=== PATIENT | male | born 1995 | race Caucasian/White ===

== ENCOUNTER 2017-03-22 16:25 | Emergency (ER) | payer OTHER ==
[2017-03-22] MEDS ORDERED: Fluorescein 1 MG Ophth Strip EYELF ONE (16:34)
[2017-03-22] MEDS ORDERED: Tetracaine HCl/PF 0.5% 4 ML Bottle EYELF ONE (16:34)
--- NOTE | 2017-03-22 16:37 | EDM.PDOC ---
[id number] Data Allergies Allergy/AdvReac Type Severity Reaction Status Date / Time NSAIDS (Non-Steroidal Allergy Hives Verified 03/22/17 17:54 Anti-Inflamma Home Meds: Home Meds . [No Known Home Meds] 03/22/17 [History] Past Medical History - Past Health History Medical/Surgical History: Denies Medical/Surgical History Psychiatric History: Reports: Addiction - Past Surgical History HEENT Surgical History: Reports: Other (See Below) Other HEENT Surgeries/Procedures: dental surgery Social & Family History - Family History Family Medical History: Noncontributory - Tobacco Use Smoking Status *Q: Current Every Day Smoker Years of Tobacco use: 5 Packs/Tins Daily: 1 Used Tobacco, but Quit: No Second Hand Smoke Exposure: Yes - Caffeine Use Caffeine Use: Reports: Coffee, Energy Drinks, Soda - Alcohol Use Days Per Week of Alcohol Use: 0 - Recreational Drug Use Recreational Drug Use: No Drug Use in Last 12 Months: No Recreational Drug Type: Reports: Methamphetamine, Opium - Living Situation & Occupation Living situation: Reports: with Family Occupation: Employed ED ROS GENERAL - Review of Systems Review Of Systems: ROS reveals no pertinent complaints other than HPI. ED EXAM GENERAL W FULL EYE - Physical Exam Exam: See Below Exam Limited By: No Limitations General Appearance: Alert, WD/WN, No Apparent Distress Eye Exam: Bilateral Eye: Conjunctival Injection, EOMI, PERRL Eyelids: Bilateral: Lid Everted for Exam Conjunctiva & Sclera: Bilateral: Injected Cornea Exam: Bilateral: Normal Appearance, Examined with Flourescein Extraocular Movements: Bilateral: Intact Pupils: Normal Accommodation Pupillary Size: Bilateral: 3 mm Pupillary Reaction: Bilateral: Brisk Anterior Chamber: Bilateral: Normal Appearance Ears: Normal External Exam, Normal Canal, Hearing Grossly Normal, Normal TMs Nose: Normal Inspection, Normal Mucosa, No Blood Throat/Mouth: Normal Oropharynx, Normal Voice, No Airway Compromise Head: Atraumatic, Normocephalic Neck: Normal Inspection, Supple, Non-Tender, Full Range of Motion Neurological: Alert, Oriented, CN II-XII Intact, Normal Cognition, Normal Gait, No Motor/Sensory Deficits Psychiatric: Normal Affect, Normal Mood Skin Exam: Warm, Dry, Intact, Normal Color, No Rash Course - Vital Signs Last Recorded V/S: Last Vital Signs Temp 36.4 C 03/22/17 16:35 Pulse 101 H 05/05/17 16:35 Resp 18 03/22/17 16:35 BP 142/76 H 03/22/17 16:35 Pulse Ox 99 03/22/17 16:35 - Orders/Labs/Meds Meds: Medications Discontinued Medications Generic Name Dose Route Start Last Admin Trade Name Diana PRN Reason Stop Dose Admin Fluorescein Sodium 1 mg 03/22/17 16:34 03/22/17 17:11 Ful-Iris EYELF 03/22/17 16:35 1 mg ONETIME ONE Administration Gentamicin Sulfate 1 ml 03/22/17 21:00 03/22/17 17:12 Garamycin 0.3% Ophth Soln EYELF 1 drop TID MAURO Administration Gentamicin Sulfate Confirm 03/22/17 16:38 03/22/17 17:12 Garamycin 0.3% Ophth Soln Administered 03/22/17 16:39 Not Given Dose 5 ml .ROUTE .STK-MED ONE Gentamicin Sulfate 0 ml 03/22/17 16:38 Garamycin 0.3% Ophth Soln EYEBOTH 03/22/17 16:39 .STK-MED ONE Loratadine 10 mg 03/22/17 16:49 03/22/17 17:12 Claritin PO 03/22/17 16:50 10 mg ONETIME ONE Administration Prednisolone Acetate 1 ml 03/22/17 16:49 03/22/17 17:11 Pred Forte 1% Ophth Susp EYELF 03/22/17 16:50 1 ml ONETIME ONE Administration Tetracaine HCl 1 ml 03/22/17 16:34 03/22/17 17:12 Tetracaine 0.5% Steri-Unit Jami EYELF 03/22/17 16:35 1 drop ASDIRECTED ONE Administration Departure - Departure Time of Disposition: 16:49 Disposition: Home, Self-Care 01 Clinical Impression: Bacterial conjunctivitis of left eye Allergic conjunctivitis Qualifiers: Laterality: bilateral Qualified Code(s): H10.13 - Acute atopic conjunctivitis, bilateral - Discharge Information Instructions: Bacterial Conjunctivitis, [id number], Allergic Conjunctivitis Referrals: PCP,None [Primary Care Provider] - Forms: ED Department Discharge Additional Instructions: Use Gentamycin eye solution: 1 drop into left eye four times a day for 5 days. Use over the counter Naphcon-A or Vasocon-A eye drops for 5 to 10 days as needed. Follow instructions on package label. Use over the counter Claritin (Loratadine) 10m tablet by mouth once a day for the next 2 weeks. Follow up in clinic if not improving in 2 to 3 days. ED HPI EYE COMPLAINT - General Chief Complaint: ENT Problem Stated Complaint: EYE Time Seen by Provider: 03/22/17 16:37 Source: Reports: Patient, RN, RN Notes Reviewed History Limitations: Reports: No Limitations - History of Present Illness INITIAL COMMENTS - FREE TEXT/NARRATIVE: C/O irritated eyes with redness and yellow matting. Timing/Duration: Reports: Day(s): (2), Getting worse Location: both Quality: Reports: Burning (and itching) Severity: Moderate Improves with: Reports: None Worsens with: Reports: None Associated Symptoms (Eye): Reports: eyelid matting - Related Data Allergies/ADRs: Allergies NSAIDS (Non-Steroidal Anti-Inflamma Allergy (Verified 03/22/17 17:54) Hives states he has been able to take nsaids now the last few years Home Meds: Ambulatory Orders Medication Instructions Recorded Confirmed . [No Known Home Meds] 03/22/17 03/22/17 Departure - Departure Time of Disposition: 16:49 Disposition: Home, Self-Care 01 Condition: good Clinical Impression: Bacterial conjunctivitis of left eye Allergic conjunctivitis Qualifiers: Laterality: bilateral Qualified Code(s): H10.13 - Acute atopic conjunctivitis, bilateral Instructions: Allergic Conjunctivitis, Bacterial Conjunctivitis, [id number] Referrals: PCP,None [Primary Care Provider] - Forms: ED Department Discharge Additional Instructions: Use Gentamycin eye solution: 1 drop into left eye four times a day for 5 days. Use over the counter Naphcon-A or Vasocon-A eye drops for 5 to 10 days as needed. Follow instructions on package label. Use over the counter Claritin (Loratadine) 10m tablet by mouth once a day for the next 2 weeks. Follow up in clinic if not improving in 2 to 3 days.
[2017-03-22] MEDS ORDERED: Gentamicin 0.3% Ophth Soln 5 ML Bottle ONE (16:38)
[2017-03-22] MEDS ORDERED: Gentamicin 0.3% Ophth Soln 5 ML Bottle EYEBOTH ONE (16:38)
[2017-03-22] MEDS ORDERED: prednisoLONE Acetate 1% Ophth Susp 5 ML Bottle EYELF ONE (16:49)
[2017-03-22] MEDS ORDERED: Loratadine 10 MG Tab PO ONE (16:49)
[2017-03-22 17:54] VITALS: BP 142/76
[2017-03-22] MEDS ORDERED: Gentamicin 0.3% Ophth Soln 5 ML Bottle EYELF SCH (21:00)
== END 2017-03-22 17:15 | disposition home or self-care (01) ==
LOC: DL.ED 16:25
DX: H10.13 Acute atopic conjunctivitis, bilateral (principal); H10.9 Unspecified conjunctivitis; F17.210 Nicotine dependence, cigarettes, uncomplicated; Z88.8 Allergy status to other drugs, medicaments and biological substances
CPT/HCPCS: 99282; A9270

== ENCOUNTER 2017-11-22 15:10 | Emergency (ER) | payer OTHER ==
--- NOTE | 2017-11-22 15:20 | EDM.PDOC ---
ED HPI GENERAL MEDICAL PROBLEM - General Chief Complaint: Head Injury Stated Complaint: HIT HEAD AT WORK, [id number] Time Seen by Provider: 11/22/17 15:19 Source of Information: Reports: Patient, RN, RN Notes Reviewed History Limitations: Reports: No Limitations - History of Present Illness INITIAL COMMENTS - FREE TEXT/NARRATIVE: Arrives to ER by POV with c/o of generalized moderate headache, and feeling "a little off or foggy" since getting hit on the top of the head by a metal hand truck at work this morning at approx. 09:30HRS. Pt denies LOC, vomiting, leak of clear or bloody fluid from the ears or nose, no neck pain. Denies any other injury. No history of previous concussion that he knows of. Onset: Today Onset Date: 11/22/17 Onset Time: 09:30 Duration: Constant Location: Reports: Head Quality: Reports: Ache, Throbbing Severity: Moderate Improves with: Reports: None Worsens with: Reports: None Associated Symptoms: Reports: No Other Symptoms Headache Pain Score (Numeric/FACES): 5 - Related Data Allergies Allergy/AdvReac Type Severity Reaction Status Date / Time No Known Allergies Allergy Verified 11/22/17 15:24 Home Meds: Home Meds DULoxetine HCl [Cymbalta] 40 mg PO DAILY 11/22/17 [History] Past Medical History - Past Health History Medical/Surgical History: Denies Medical/Surgical History Psychiatric History: Reports: Addiction - Past Surgical History HEENT Surgical History: Reports: Other (See Below) Other HEENT Surgeries/Procedures: dental surgery Social & Family History - Family History Family Medical History: Noncontributory - Tobacco Use Smoking Status *Q: Current Every Day Smoker Years of Tobacco use: 5 Packs/Tins Daily: 1 Used Tobacco, but Quit: No Second Hand Smoke Exposure: Yes - Caffeine Use Caffeine Use: Reports: Coffee, Energy Drinks, Soda - Alcohol Use Days Per Week of Alcohol Use: 0 - Recreational Drug Use Recreational Drug Use: No Drug Use in Last 12 Months: No Recreational Drug Type: Reports: Methamphetamine, Opium - Living Situation & Occupation Living situation: Reports: with Family Occupation: Employed ED ROS GENERAL - Review of Systems Review Of Systems: ROS reveals no pertinent complaints other than HPI. ED EXAM, HEAD INJURY - Physical Exam Exam: See Below Exam Limited By: No Limitations General Appearance: Alert, WD/WN, No Apparent Distress Head: Atraumatic, Normocephalic. No: Scalp Lacerations, Scalp Swelling, Scalp Abrasions, Scalp Ecchymosis, Scalp Hematoma, Scalp Tenderness, Botello's Sign Nexus Criteria: No: Posterior, Midline Cervical Tenderness, Evidence of Intoxication, Altered Level of Consciousness, Focal Neurological Deficit, Painful Distraction Injuries Eyes: Bilateral Eye: EOMI, Normal Inspection, PERRL Ears: Normal External Exam, Normal Canal, Hearing Grossly Normal, Normal TMs, Other (no hemotympanum) Nose: Normal Inspection, Normal Mucousa, No Blood Throat/Mouth: Normal Inspection, Normal Lips, Normal Teeth, Normal Gums, Normal Oropharynx, Normal Voice, No Airway Compromise Neck: Non-Tender, Full Range of Motion, Normal Alignment, Normal Inspection Respiratory: No Respiratory Distress, Lungs Clear, Normal Breath Sounds, No Accessory Muscle Use, Chest Non-Tender Cardiovascular: Regular Rate, Rhythm Back Exam: Normal Inspection Extremities: Normal 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, No Motor/Sensory Deficits, Alert, Normal Mood/Affect, Oriented x 3 Skin: Normal Color, Warm/Dry - Scott Coma Score Best Eye Response (Scott): (4) Open Spontaneously Best Verbal Response ([place]): (5) Oriented Best Motor Response (Scott): (6) Obeys Commands Scott Total: 15 Course - Vital Signs Last Recorded V/S: Last Vital Signs Temp 37.5 C 11/22/17 15:25 Pulse 92 11/22/17 15:25 Resp 16 11/22/17 15:25 BP 151/86 H 11/22/17 15:25 Pulse Ox 100 11/22/17 15:25 Departure - Departure Time of Disposition: 15:29 Disposition: Home, Self-Care 01 Condition: Good Clinical Impression: Concussion with no loss of consciousness - Discharge Information Instructions: Concussion, Adult, [id number] Forms: ED Department Discharge Additional Instructions: Rx: Zofran 4mg Use over the counter Acetaminophen (Tylenol) and/or Ibuprofen (Advil/Motrin) as needed for headache or pain. Use only non-drowsy products, and follow directions on package label for dosing and precautions. Concussion precautions for 3 weeks: No contact sports, physical exertion, bouncing or jarring activities, and no alcohol. Follow up at your primary clinic for recheck in 15 to 20 days.
[2017-11-22 15:26] VITALS: BP 151/86
== END 2017-11-22 15:45 | disposition home or self-care (01) ==
LOC: DL.ED 15:10
DX: S06.0X0A Concussion without loss of consciousness, initial encounter (principal); F17.210 Nicotine dependence, cigarettes, uncomplicated; Z79.899 Other long term (current) drug therapy; W22.8XXA Striking against or struck by other objects, initial encounter; Y99.0 Civilian activity done for income or pay
CPT/HCPCS: 99283